=== PATIENT | male | born 1965 | race Caucasian/White ===

== ENCOUNTER 2017-08-02 02:37 | Inpatient (IN) ==
[2017-08-02] MEDS ORDERED: Ipratropium/Albuterol Neb 3 ML IH PRN (04:52)
[2017-08-02] MEDS ORDERED: Naloxone 0.4 MG/ML INJ IVP PRN (07:48)
[2017-08-02] MEDS ORDERED: D5% in Water 1,000 ML IVC PRN (08:13)
[2017-08-02] MEDS ORDERED: Dextrose Gel 15 GM/37.5 ML TUBE PO PRN ×2 (08:13)
[2017-08-02] MEDS ORDERED: *HR* Dextrose 50 % in Water (Syg) 50 ML SYRINGE IVP PRN (08:13)
[2017-08-02 09:21] LABS: Hemoglobin A1C 9.6 %
[2017-08-02] MEDS: 0.9 % Sodium Chloride 1,000 ML IVC SCH ×2 (09:37→23:58)
[2017-08-02] MEDS: Insulin LISPRO 300 UNITS/3 ML VIAL SQ SCH ×4 (09:46→19:57)
--- NOTE | 2017-08-02 10:19 | Internal Med History&Physical ---
Date of Encounter: 08/02/17 Time of Encounter: 10:17 Assessment and Plan (1) Acute respiratory failure with hypoxia Current visit: Yes Status: Acute Admit inpatient. Patient severely hypoxic and requiring 6-7 L O2 supplementation. Due to pneumonia. O2 supplementation. Wean FiO2 as tolerated. Bronchodilators as needed. Treat underlying pneumonia. High risk for complications. Patient will stay in the hospital for at least 2 midnights (2) Pneumonia Current visit: Yes Status: Suspected Patient has bilateral nodular infiltrates concerning for pneumonia. Community- acquired. Treating with IV levofloxacin. Will check respiratory infection panel. Continue supportive care. If patient makes sputum mucins. For cultures. In the meantime follow blood culture results. Qualifiers: Pneumonia type: due to Pneumococcus Laterality: bilateral Lung location: unspecified part of lung Qualified Code(s): J13 - Pneumonia due to Streptococcus pneumoniae (3) Diabetes mellitus Current visit: Yes Status: Chronic A1c is 9.6%. Will place patient on before meals at bedtime sliding scale coverage and long-acting insulin. Diabetic diet. Qualifiers: Diabetes mellitus type: type 2 Diabetes mellitus complication status: with hyperglycemia Diabetes mellitus long-term insulin use: without long-term use Qualified Code(s): E11.65 - Type 2 diabetes mellitus with hyperglycemia (4) Essential hypertension Current visit: Yes Status: Chronic Continue lisinopril. (5) DVT prophylaxis Current visit: Yes Status: Acute With subcutaneous heparin Internal Medicine - H&P: HPI Chief complaint: Shortness of breath, cough and fever Admitted From: Emergency Dept Plans for Post Hospital Care: Home History of present illness: Mr. Clements is a 51 year old male patient with history of hypertension, diabetes who presented to the ER with complaints of worsening cough, fever and shortness of breath. His symptoms have been going on since 1 week back. He was initially seen in the ER last Monday and was suspected of having upper respiratory viral illness and was treated for that with anti-inflammatory agents and nasal spray. His symptoms did not improve and so he returned to the ER yesterday. He has been having worsening fever and chills. He says his temperature went up to 101. He denies any sputum production. He continues to have generalized body aches. No nausea or vomiting. He does have some pleuritic chest pain. Past Med Surg Social Fam HX - Past Medical History Attestation: Yes The following information was validated with the patient. Source: patient Medical history: diabetes, hyperlipidemia, hypertension Psychiatric history: no psych history - Social History Smoking Status: Never smoker Alcohol use: none Drug use: none - Family History Mother History Unknown: Yes Father History Unknown: Yes Internal Medicine - H&P: Meds Oxymetazoline HCl [Afrin] 1 spray NS QID PRN #1 bottle 07/28/17 [Rx] Saline Nasal Tea [[place] Nasal Tea] 1 appl NS AD PRN 7 Days #1 spray [Rx] Lisinopril [Zestril] 5 mg PO DAILY 08/01/17 [History] Lovastatin 10 mg PO DAILY 08/01/17 [History] Nabumetone [Relafen] 500 mg PO BID 08/01/17 [History] metFORMIN [Glucophage] 1,000 mg PO BIDWM 08/01/17 [History] 3 Allergy/AdvReac Type Severity Reaction Status Date / Time No Known Allergies Allergy Verified 08/01/17 22:49 All Systems PM: A 10-system review of systems was performed and is negative for pertinent findings except as documented above in the HPI. - Constitutional Constitutional: fever(s), malaise, no chills, no night sweats - EENT Eyes: no change in vision, no discharge, no pain, no photophobia Ears: no ear discharge, no ear pain, no tinnitus Nose, mouth and throat: no dysphagia, no nasal discharge, no neck pain, no sore throat - Cardiovascular Cardiovascular ROS IM: other (Pleuritic chest pain), no chest pain, no diaphoresis, no dyspnea, no lightheadedness, no palpitations, no syncope - Respiratory Respiratory: cough - Gastrointestinal Gastrointestinal: no abdominal pain, no diarrhea, no hematemesis, no hematochezia, no melena, no nausea, no vomiting - Musculoskeletal Musculoskeletal ROS IM: no numbness, no tingling - Integumentary Integumentary IM: no rash, no unusual bruising - Neurological Neurological ROS: no confusion, no convulsions, no focal weakness, no numbness, no tingling, no tremor(s) - Hematologic/Lymphatic Hematologic/Lymphatic: no easy bruising - Constitutional Vitals: Temp Pulse Resp BP Pulse Ox 99.0 F 93 17 132/80 92 08/02/17 07:17 08/02/17 07:17 08/02/17 07:17 08/02/17 07:17 08/02/17 09:53 General appearance: Present: mild distress, A&O X 3, obese, answers questions appropriately - Neck Neck exam general surgery: Present: supple, trachea midline. Absent: lymphadenopathy - Respiratory Respiratory exam: Present: rhonchi. Absent: accessory muscle use, rales, wheezes - Cardiovascular Cardiovascular exam: Present: RRR, +S1, +S2. Absent: diastolic murmur, gallop, rubs, systolic murmur - GI/Abdominal GI/Abdominal exam: Present: normal bowel sounds, soft, no peritoneal signs. Absent: distended, tenderness - Extremities Exam Extremities exam: Present: warm, radial pulses palpable and symmetrical. Absent : calf tenderness, cyanotic, pedal edema - Neurological Exam Neurological exam: Present: CN II-XII intact, oriented X3, no focal deficits. Absent: pronater drift, facial droop, speech deficit - Skin Skin exam: Present: dry, intact Internal Med - H&P Results - Labs Labs: Revisit 3.1, hemoglobin 11.9, sodium 130, chloride 96 lactic acid 2.5. - Impressions CT scan of the chest shows bilateral air space disease concerning for pneumonia. Follow-up recommended after antibiotic therapy.
[2017-08-02] MEDS ORDERED: Insulin LISPRO 300 UNITS/3 ML VIAL SQ SCH (11:30)
[2017-08-02] MEDS: Saline Nasal Spray 44 ML BOTTLE NS SCH ×2 (11:52→17:19)
[2017-08-02 14:37] LABS: Adenovirus Not Detected (Not Detect); Bordetella Pertussis Not Detected (Not Detect); Chlamydophila pneumoniae Not Detected (Not Detect); Coronavirus 229E Not Detected (Not Detect); Coronavirus HKU1 Not Detected (Not Detect); Coronavirus NL63 Not Detected (Not Detect); Coronavirus OC43 Not Detected (Not Detect); Human Metapneumovirus Not Detected (Not Detect); Human Rhinovirus/Enterovirus Not Detected (Not Detect); Influenza A Subtype 2009 H1 Not Detected (Not Detect); Influenza A Untypeable Not Detected (Not Detect); Influenza B Not Detected (Not Detect); Mycoplasma pneumoniae Not Detected (Not Detect); Parainfluenza Virus 1 Not Detected (Not Detect); Parainfluenza Virus 2 Not Detected (Not Detect); Parainfluenza Virus 3 Not Detected (Not Detect); Parainfluenza Virus 4 Not Detected (Not Detect); Respiratory Syncytial Virus Not Detected (Not Detect)
[2017-08-02] MEDS ORDERED: Ketorolac 15 MG/ML VIAL IVP PRN (19:32)
[2017-08-02] MEDS ORDERED: Acetaminophen 325 MG TABLET PO PRN (19:32)
[2017-08-02] MEDS: Insulin DETEMIR 100 UNIT/ML X5UNITS SQ SCH (19:57)
[2017-08-02] MEDS: *HR* Heparin 5,000 UNIT/ML VIAL SQ SCH (20:12)
[2017-08-03] MEDS: Levofloxacin 750 MG/150 ML 750 MG/150 ML BAG IVPB SCH (02:07)
[2017-08-03 04:38] LABS: Eosinophils % 0.8 %; Hematocrit 31.9 % (37.5-50.1); Hemoglobin 10.6 g/dL (12.9-16.9); Immature Granulocytes % 0.8 % (0-4); Lymphocytes # 0.9 K/mcL (0.6-4.6); Lymphocytes % 23.5 %; Mean Corpuscular HGB Conc 33.2 g/dL (31.6-35.5); Mean Corpuscular Hemoglobin 27.5 pg (28.0-33.3); Mean Corpuscular Volume 82.9 fL (83.0-100.0); Mean Platelet Volume 9.9 fL (9.4-12.4); Monocytes # 0.3 K/mcL (0.0-1.3); Monocytes % 6.9 %; Neutrophils # 2.6 K/mcL (1.6-8.9); Nucleated Red Blood Cells 0.8 /100 WBC (0); Platelet Count 117 K/mcL (140-400); Red Blood Count 3.85 M/mcL (4.19-5.50); Red Cell Distribution Width 13.8 % (11.5-14.5)
[2017-08-03 04:47] LABS: BUN/Creatinine Ratio 18 (6-26); Blood Urea Nitrogen 11 mg/dL (6-20); Calcium 8.6 mg/dL (8.6-10.3); Carbon Dioxide 25 mEq/L (23-29); Chloride 101 mEq/L (98-107); Glucose 233 mg/dL (70-105); Osmolality,Calculated 285 (280-300); Potassium 3.8 mEq/L (3.5-5.1); Sodium 134 mEq/L (136-145); eGFR For African Americans > 60 (> 60); eGFR For Non-African Americans > 60 (> 60)
[2017-08-03 05:17] LABS: Platelet Estimate Slight Decrease (Normal); Reactive Lymphocytes Present (Not Present); Toxic Granulation Present (Not Present)
[2017-08-03] MEDS: *HR* Heparin 5,000 UNIT/ML VIAL SQ SCH ×2 (07:46→16:42)
[2017-08-03] MEDS: Insulin LISPRO 300 UNITS/3 ML VIAL SQ SCH ×4 (08:00→20:47)
[2017-08-03] MEDS: Saline Nasal Spray 44 ML BOTTLE NS SCH (09:43)
--- NOTE | 2017-08-03 11:40 | Internal Med Progress Note ---
Date of Encounter: 08/03/17 Time of Encounter: 11:38 - Assessment and plan (1) Acute respiratory failure with hypoxia Current Visit: Yes Status: Acute Assessment and plan: Continues to require O2 supplementation. Wean FiO2 as tolerated. Responding well to current treatment. Remains at high risk for complications due to high O2 supplementation requirements. (2) Pneumonia Current Visit: Yes Status: Acute Assessment and plan: No clear organism has been identified so far. Negative for urine Legionella and strep antigens. Continue levofloxacin. Responding well to treatment regimen. No longer having any fevers. Respiratory infection panel has been negative. Qualifiers: Pneumonia type: due to Pneumococcus Laterality: bilateral Lung location: unspecified part of lung Qualified Code(s): J13 - Pneumonia due to Streptococcus pneumoniae (3) Diabetes mellitus Current Visit: Yes Status: Chronic Assessment and plan: Improved control. Blood sugars remain in the 200s. We will increase long- acting insulin coverage to 10 units twice daily. Qualifiers: Diabetes mellitus type: type 2 Diabetes mellitus complication status: with hyperglycemia Diabetes mellitus senior living insulin use: without senior living use Qualified Code(s): E11.65 - Type 2 diabetes mellitus with hyperglycemia (4) Essential hypertension Current Visit: Yes Status: Chronic Assessment and plan: Well controlled. Continue current medication regimen. (5) DVT prophylaxis Current Visit: Yes Status: Acute Assessment and plan: Continue subcutaneous heparin - Subjective Interval history: Patient is feeling somewhat better today. He is able to rest better. He is now been weaned down to 5 L O2 supplementation. Continues to have cough. No fever reported overnight. - Constitutional Vitals: Temp Pulse Resp BP Pulse Ox 98.7 F 81 18 116/73 93 08/03/17 11:16 08/03/17 11:16 08/03/17 11:16 08/03/17 11:16 08/03/17 11:16 General appearance: Present: mild distress, A&O X 3, obese, answers questions appropriately - Neck Neck exam general surgery: Present: supple, trachea midline. Absent: lymphadenopathy - Respiratory Respiratory exam: Present: prolonged expiratory phase. Absent: accessory muscle use, rales, rhonchi, wheezes - Cardiovascular Cardiovascular exam: Present: RRR, +S1, +S2. Absent: diastolic murmur, gallop, rubs, systolic murmur - GI/Abdominal GI/Abdominal exam: Present: normal bowel sounds, soft, no peritoneal signs. Absent: distended, tenderness - Extremities Exam Extremities exam: Present: warm, radial pulses palpable and symmetrical. Absent : calf tenderness, cyanotic, pedal edema - Neurological Exam Neurological exam: Present: CN II-XII intact, oriented X3, no focal deficits. Absent: facial droop, speech deficit - Skin Skin exam: Present: dry, intact Internal Medicine: Result - Labs CBC & Chem 7: 08/03/17 03:53 08/03/17 03:53 Labs: Short CBC 08/03/17 Range/Units 03:53 WBC 3.8 L (4.3-11.1) K/mcL Hgb 10.6 L (12.9-16.9) g/dL Hct 31.9 L (37.5-50.1) % Plt Count 117 L (140-400) K/mcL Neutrophils # 2.6 (1.6-8.9) K/mcL BMP 08/03/17 03:53 Sodium 134 L Potassium 3.8 Chloride 101 Carbon Dioxide 25 BUN 11 Creatinine 0.60 L Glucose 233 H Calcium 8.6 Consult Discharge Plan - Plan Referrals: Garry Etienne MD [Primary Care Provider] - Jaime Ambrosio CNP [Family Provider] -
[2017-08-03] MEDS: Benzonatate 100 MG CAPSULE PO PRN (20:46)
[2017-08-03] MEDS: Insulin DETEMIR 100 UNIT/ML X5UNITS SQ SCH (20:46)
[2017-08-04] MEDS: Levofloxacin 750 MG/150 ML 750 MG/150 ML BAG IVPB SCH (02:24)
[2017-08-04] MEDS: *HR* Heparin 5,000 UNIT/ML VIAL SQ SCH (07:02)
[2017-08-04] MEDS: Saline Nasal Spray 44 ML BOTTLE NS SCH (08:23)
[2017-08-04] MEDS: Insulin LISPRO 300 UNITS/3 ML VIAL SQ SCH ×2 (08:24→12:19)
[2017-08-04] MEDS ORDERED: Insulin DETEMIR 100 UNIT/ML X5UNITS SQ SCH (11:21)
[2017-08-04 11:22] VITALS: BP 147/86
[2017-08-04] MEDS: Benzonatate 100 MG CAPSULE PO PRN (12:31)
--- NOTE | 2017-08-04 14:45 | Discharge Summary ---
- NOTES TO OUTPATIENT PROVIDER Notes to Outpatient Provider: Patient has been hypoxic all through his stay here. Been prescribed home oxygen. Reevaluate in clinic in 2-3 weeks. Date of Encounter: 08/04/17 Time of Encounter: 14:41 - Discharge Diagnosis (1) Acute respiratory failure with hypoxia Priority: Primary Status: Acute (2) Pneumonia Priority: Secondary Status: Acute Qualifiers: Pneumonia type: due to unspecified organism Laterality: bilateral Lung location: unspecified part of lung Qualified Code(s): J18.9 - Pneumonia, unspecified organism (3) Diabetes mellitus Priority: Secondary Status: Chronic Qualifiers: Diabetes mellitus type: type 2 Diabetes mellitus complication status: with hyperglycemia Diabetes mellitus assisted insulin use: without assisted use Qualified Code(s): E11.65 - Type 2 diabetes mellitus with hyperglycemia (4) Essential hypertension Priority: Secondary Status: Chronic (5) DVT prophylaxis Priority: Secondary Status: Acute Hospital course: Mr. Clements is a 51 year old male patient with history of diabetes mellitus, hypertension was hospitalized here with bilateral pneumonia and hypoxia. She was started on IV antibiotics and O2 supplementation along with bronchodilators as needed to help with his symptoms. Blood cultures were done and so far have been negative. His respiratory panel was also negative. Sputum culture was attempted but and appropriate sample was unable to be obtained. Urine was negative for legionella and strep pneumo antigens. However, patient is clinically improved and is now doing much better. He has been weaned down to 2- 3 L O2 supplementation but has continued to require O2 supplementation at this rate. As such I think he would benefit from home oxygen at this time. He will need to follow up with his primary care provider in a month to reassess. At this time, he will be discharged on levofloxacin. His blood sugars have been elevated here and so he will be placed on glipizide in addition to metformin. Discharge discussed with: patient, family - Time Spent with Patient Total time spent providing and/or coordinating discharge services: Greater than 30 minutes (35 min) - Discharge Medications Prescriptions: Albuterol Sulfate [Albuterol Inhaler] 2 puff IH Q4HR PRN #1 hfa.aer.ad PRN Reason: Shortness Of Breath GuaiFENesin/Dextromethorphan [Robitussin/Dm] 10 ml PO Q6HR PRN #250 ml PRN Reason: Cough Benzonatate [Tessalon] 100 mg PO TID PRN #30 capsule PRN Reason: Cough GlipiZIDE [Glipizide Xl] 5 mg PO DAILY #30 tab.er.24 levoFLOXacin [Levaquin] 750 mg PO DAILY #7 tablet Home Medications: Oxymetazoline HCl [Afrin] 1 spray NS QID PRN #1 bottle 07/28/17 [Rx] Saline Nasal [place] [[place] Nasal [place]] 1 appl NS AD PRN 7 Days #1 spray [Rx] Lisinopril [Zestril] 5 mg PO DAILY 08/01/17 [History] Lovastatin 10 mg PO DAILY 08/01/17 [History] Nabumetone [Relafen] 500 mg PO BID 08/01/17 [History] metFORMIN [Glucophage] 1,000 mg PO BIDWM 08/01/17 [History] Albuterol Sulfate [Albuterol Inhaler] 2 puff IH Q4HR PRN #1 hfa.aer.ad 08/04/17 [Rx] Benzonatate [Tessalon] 100 mg PO TID PRN #30 capsule 08/04/17 [Rx] GlipiZIDE [Glipizide Xl] 5 mg PO DAILY #30 tab.er.24 08/04/17 [Rx] GuaiFENesin/Dextromethorphan [Robitussin/Dm] 10 ml PO Q6HR PRN #250 ml 08/04/17 [Rx] levoFLOXacin [Levaquin] 750 mg PO DAILY #7 tablet 08/04/17 [Rx] Allergies/Adverse Reactions: 3 Allergy/AdvReac Type Severity Reaction Status Date / Time No Known Allergies Allergy Verified 08/01/17 22:49 Date of admission: 08/02/17 07:48 Primary care physician: Garry Etienne MD Discharging clinician: Bassem Tolliver Anticipated date of discharge: 08/04/17 - Constitutional Vitals: Temp Pulse Resp BP Pulse Ox 98.8 F 77 16 147/86 93 08/04/17 11:13 08/04/17 11:13 08/04/17 11:13 08/04/17 11:13 08/04/17 11:15 General appearance: Present: cooperative, A&O X 3, obese, answers questions appropriately - Respiratory Respiratory exam: Present: CTAB. Absent: accessory muscle use, rales, rhonchi, wheezes - Cardiovascular Cardiovascular exam: Present: RRR, +S1, +S2. Absent: diastolic murmur, gallop, rubs, systolic murmur - GI/Abdominal GI/Abdominal exam: Present: normal bowel sounds, soft, no peritoneal signs. Absent: distended, tenderness - Extremities Exam Extremities exam: Present: warm, radial pulses palpable and symmetrical. Absent : calf tenderness, cyanotic, pedal edema - Neurological Exam Neurological exam: Present: alert, oriented X3, no focal deficits. Absent: facial droop, speech deficit - Patient Status Disposition: Home, Self-Care Condition: Good Functional capacity at discharge: independent ambulation Overall status at discharge: patient is progressing back to baseline - Discharge Instructions Instructions: Acute Respiratory Distress Syndrome (DC), Diabetes Mellitus Type 2 in Adults (DC), Pneumonia (DC) Follow Up With: Jaime Ambrosio CNP [Family Provider] - 08/10/17 2:30 pm (Please follow up as schedule...) - Diet and Activity Activity: increase activity as tolerated, wear oxygen at all times Diet: diabetic diet, low fat, low cholesterol, low salt diet
[2017-08-05] MEDS ORDERED: levoFLOXacin 750 MG TABLET PO SCH (09:00)
== END 2017-08-04 15:44 | disposition home or self-care (01) | DRG 139 ==
LOC: 2ANU
PROVIDERS: ADMIT Internal Medicine; ATTEND Internal Medicine